=== PATIENT | male | born 1955 | race Two or more races ===

== ENCOUNTER 2017-10-22 11:18 | Inpatient (IN) | payer MEDICAID, OTHER ==
[~2017-10-22] VITALS: Ht 175.3 cm; Wt 87.6 kg
[2017-10-22] MEDS ORDERED: ASPI-496 PO (11:55)
[2017-10-22] MEDS ORDERED: METO25TA35 PO (11:55)
[2017-10-22] MEDS ORDERED: LISI30TA4 PO (11:55)
[2017-10-22] MEDS ORDERED: ACETAMINOPHEN 500 MG TABLET ONE (11:57)
[2017-10-22] MEDS ORDERED: VANCOMYCIN 2,000 MG in SODIUM CHLORIDE 0.9% 500 ML IV ONE (12:00)
[2017-10-22] MEDS ORDERED: VANCOMYCIN PER PHARMACY MC ONE (12:00)
[2017-10-22] MEDS ORDERED: SODIUM CHLORIDE 0.9% 1,000ML IVBOLUS ONE (12:00)
[2017-10-22] MEDS ORDERED: AMPICILLIN/SULBACTAM 3 GM in SODIUM CHLORIDE 0.9% 100 ML IV ONE (12:00)
[2017-10-22] MEDS ORDERED: PHARMACOKINETIC CONSULTATION MC ONE (12:00)
[2017-10-22] MEDS ORDERED: ACETAMINOPHEN 500 MG TABLET PO ONE (12:00)
[2017-10-22 12:36] LABS: MEAN CORPUSCULAR HEMOGLOBIN 30.1 pg (27.5-34.5); MEAN CORPUSCULAR HGB CONC 34.3 g/dL (33.2-36.2); MEAN CORPUSCULAR VOLUME 87.7 fL (81-97); MEAN PLATELET VOLUME 10.3 fL (7.4-10.4); PLATELET COUNT 199 x10^3/uL (130-400); RED BLOOD COUNT 5.19 x10^6/uL (4.38-5.82); RED CELL DISTRIBUTION WIDTH 13.2 % (9.4-14.8)
[2017-10-22 12:43] LABS: INTERNATIONAL NORMALIZED RATIO 1.03 (0.93-1.1); PROTHROMBIN TIME 10.6 Seconds (9.6-11.5)
[2017-10-22 12:48] LABS: ALANINE AMINOTRANSFERASE 22 U/L (12-78); ANION GAP 8 mmol/L (5-15); CALCIUM 8.7 mg/dL (8.5-10.1); CHLORIDE 103 mmol/L (98-107); CREATININE 0.97 mg/dL (0.7-1.3)
[2017-10-22 12:50] LABS: ALKALINE PHOSPHATASE 89 U/L (45-117); BILIRUBIN,TOTAL 1.6 mg/dL (0.2-1.0)
[2017-10-22 12:59] LABS: BASOPHILS # (AUTO) 0.03 x10^3/uL (0-0.1); BASOPHILS % (AUTO) 0 % (0-1); EOSINOPHILS # (AUTO) 0.01 x10^3/uL (0-0.4); EOSINOPHILS % (AUTO) 0 % (1-7); LYMPHOCYTES # (AUTO) 1.33 x10^3/uL (1-3.4); LYMPHOCYTES % (AUTO) 7 % (22-44); MD SCAN; MONOCYTES # (AUTO) 1.15 x10^3/uL (0.2-0.8); MONOCYTES % (AUTO) 6 % (2-9); NEUTROPHILS # (AUTO) 16.79 x10^3/uL (1.8-6.8); NEUTROPHILS % (AUTO) 87 % (42-75)
[2017-10-22] MEDS ORDERED: POLYETHYLENE GLYCOL 17 GM PACKET PO PRN (13:30)
[2017-10-22] MEDS ORDERED: hydrALAzine 20 MG/ML, 1ML IVPush PRN (13:30)
[2017-10-22] MEDS ORDERED: ONDANSETRON 2MG/ML, 2ML IVPush PRN (13:30)
[2017-10-22] MEDS ORDERED: DOCUSATE 100 MG CAPSULE PO PRN (13:30)
[2017-10-22] MEDS ORDERED: VANCOMYCIN PER PHARMACY MC PRN (13:30)
[2017-10-22] MEDS ORDERED: BISACODYL 10 MG SUPP PR PRN (13:30)
[2017-10-22 13:50] VITALS: BP 128/76
[2017-10-22] MEDS ORDERED: PHARMACOKINETIC MONITORING MC PRN (14:30)
[2017-10-22 15:33] LABS: HCT (SEDRATE) 45.5 % (39.2-51.8)
[2017-10-22] MEDS: NS + 20MEQ KCL 1,000 ML IV SCH (16:21)
[2017-10-22] MEDS: ENOXAPARIN 40 MG/0.4 ML SQ SCH (16:21)
[2017-10-22] MEDS: AMPICILLIN/SULBACTAM 3 GM in SODIUM CHLORIDE 0.9% 100 ML IV SCH (18:36)
[2017-10-22 20:20] VITALS: BP 140/77
[2017-10-23] MEDS: AMPICILLIN/SULBACTAM 3 GM in SODIUM CHLORIDE 0.9% 100 ML IV SCH ×5 (00:23→18:29)
[2017-10-23 03:20] VITALS: BP 146/52
[2017-10-23 06:08] LABS: BASOPHILS # (AUTO) 0.06 x10^3/uL (0-0.1); BASOPHILS % (AUTO) 1 % (0-1); EOSINOPHILS # (AUTO) 0.01 x10^3/uL (0-0.4); EOSINOPHILS % (AUTO) 0 % (1-7); LYMPHOCYTES # (AUTO) 1.76 x10^3/uL (1-3.4); LYMPHOCYTES % (AUTO) 13 % (22-44); MD NO; MEAN CORPUSCULAR HEMOGLOBIN 29.8 pg (27.5-34.5); MEAN CORPUSCULAR HGB CONC 33.5 g/dL (33.2-36.2); MEAN CORPUSCULAR VOLUME 88.8 fL (81-97); MEAN PLATELET VOLUME 9.6 fL (7.4-10.4); MONOCYTES # (AUTO) 1.12 x10^3/uL (0.2-0.8); MONOCYTES % (AUTO) 8 % (2-9); NEUTROPHILS # (AUTO) 10.61 x10^3/uL (1.8-6.8); NEUTROPHILS % (AUTO) 78 % (42-75); PLATELET COUNT 164 x10^3/uL (130-400); RED BLOOD COUNT 4.57 x10^6/uL (4.38-5.82)
[2017-10-23 06:09] LABS: ALBUMIN 3.1 g/dL (3.4-5.0); ANION GAP 8 mmol/L (5-15); CALCIUM 8.3 mg/dL (8.5-10.1); CHLORIDE 108 mmol/L (98-107)
[2017-10-23 06:13] LABS: ALANINE AMINOTRANSFERASE 18 U/L (12-78); ALKALINE PHOSPHATASE 61 U/L (45-117); BILIRUBIN,TOTAL 1.2 mg/dL (0.2-1.0); CREATININE 0.75 mg/dL (0.7-1.3); TOTAL PROTEIN 6.6 g/dL (6.4-8.2)
[2017-10-23] MEDS: ACETAMINOPHEN 325 MG TABLET PO PRN (06:32)
[2017-10-23] MEDS ORDERED: VANCOMYCIN 1,800 MG in SODIUM CHLORIDE 0.9% 250 ML IV SCH (07:00)
[2017-10-23] MEDS ORDERED: POTASSIUM CHLORIDE 20 MEQ TAB.ER.PRT PO ONE (07:00)
[2017-10-23 07:50] VITALS: BP 139/72
[2017-10-23] MEDS ORDERED: KETOROLAC 30 MG/1 ML IVPush PRN (08:00)
[2017-10-23 08:40] VITALS: BP 134/76
[2017-10-23] MEDS: ASPIRIN 81 MG TABLET EC PO SCH (08:41)
[2017-10-23] MEDS: LISINOPRIL 10 MG TABLET PO SCH (08:46)
[2017-10-23] MEDS: METOPROLOL TARTRATE 25 MG TABLET PO SCH (08:46)
[2017-10-23] MEDS: NS + 20MEQ KCL 1,000 ML IV SCH (13:56)
[2017-10-23 14:31] VITALS: BP 136/76
[2017-10-23] MEDS: ENOXAPARIN 40 MG/0.4 ML SQ SCH (16:38)
[2017-10-23 19:05] VITALS: BP 140/76
[2017-10-23] MEDS: VANCOMYCIN 1,600 MG in SODIUM CHLORIDE 0.9% 250 ML IV SCH (19:32)
[2017-10-24] MEDS: AMPICILLIN/SULBACTAM 3 GM in SODIUM CHLORIDE 0.9% 100 ML IV SCH ×4 (00:47→18:28)
[2017-10-24 04:00] VITALS: BP 132/79
[2017-10-24] MEDS: NS + 20MEQ KCL 1,000 ML IV SCH (05:01)
[2017-10-24 05:25] LABS: BASOPHILS # (AUTO) 0.06 x10^3/uL (0-0.1); BASOPHILS % (AUTO) 1 % (0-1); EOSINOPHILS # (AUTO) 0.07 x10^3/uL (0-0.4); EOSINOPHILS % (AUTO) 1 % (1-7); LYMPHOCYTES # (AUTO) 1.78 x10^3/uL (1-3.4); LYMPHOCYTES % (AUTO) 13 % (22-44); MD NO; MEAN CORPUSCULAR HEMOGLOBIN 30.3 pg (27.5-34.5); MEAN CORPUSCULAR HGB CONC 34.3 g/dL (33.2-36.2); MEAN CORPUSCULAR VOLUME 88.3 fL (81-97); MEAN PLATELET VOLUME 9.4 fL (7.4-10.4); MONOCYTES # (AUTO) 1.14 x10^3/uL (0.2-0.8); MONOCYTES % (AUTO) 9 % (2-9); NEUTROPHILS % (AUTO) 77 % (42-75); PLATELET COUNT 174 x10^3/uL (130-400); RED BLOOD COUNT 4.72 x10^6/uL (4.38-5.82); RED CELL DISTRIBUTION WIDTH 12.8 % (9.4-14.8)
[2017-10-24 05:37] LABS: CHLORIDE 108 mmol/L (98-107)
[2017-10-24 05:46] LABS: ALANINE AMINOTRANSFERASE 31 U/L (12-78); ALBUMIN 2.9 g/dL (3.4-5.0); ALKALINE PHOSPHATASE 65 U/L (45-117); ANION GAP 9 mmol/L (5-15); BILIRUBIN,TOTAL 0.7 mg/dL (0.2-1.0); CALCIUM 8.2 mg/dL (8.5-10.1); CREATININE 0.72 mg/dL (0.7-1.3); TOTAL PROTEIN 6.7 g/dL (6.4-8.2)
[2017-10-24 07:24] VITALS: BP 149/79
[2017-10-24] MEDS: ASPIRIN 81 MG TABLET EC PO SCH (08:03)
[2017-10-24] MEDS: METOPROLOL TARTRATE 25 MG TABLET PO SCH (08:03)
[2017-10-24] MEDS: VANCOMYCIN 1,600 MG in SODIUM CHLORIDE 0.9% 250 ML IV SCH ×2 (08:03→20:23)
[2017-10-24] MEDS: LISINOPRIL 10 MG TABLET PO SCH (08:03)
[2017-10-24 12:38] VITALS: BP 128/73
[2017-10-24] MEDS: ENOXAPARIN 40 MG/0.4 ML SQ SCH (16:37)
[2017-10-24 19:51] VITALS: BP 151/85
[2017-10-25] MEDS: AMPICILLIN/SULBACTAM 3 GM in SODIUM CHLORIDE 0.9% 100 ML IV SCH ×2 (00:51→06:38)
[2017-10-25 02:41] VITALS: BP 131/89
[2017-10-25] MEDS: NS + 20MEQ KCL 1,000 ML IV SCH ×3 (06:37→17:38)
[2017-10-25 07:23] LABS: BASOPHILS # (AUTO) 0.05 x10^3/uL (0-0.1); BASOPHILS % (AUTO) 1 % (0-1); EOSINOPHILS # (AUTO) 0.12 x10^3/uL (0-0.4); EOSINOPHILS % (AUTO) 1 % (1-7); LYMPHOCYTES # (AUTO) 1.79 x10^3/uL (1-3.4); LYMPHOCYTES % (AUTO) 18 % (22-44); MD NO; MEAN CORPUSCULAR HEMOGLOBIN 29.9 pg (27.5-34.5); MEAN PLATELET VOLUME 8.7 fL (7.4-10.4); MONOCYTES % (AUTO) 8 % (2-9); NEUTROPHILS # (AUTO) 7.35 x10^3/uL (1.8-6.8); NEUTROPHILS % (AUTO) 73 % (42-75); PLATELET COUNT 237 x10^3/uL (130-400); RED BLOOD COUNT 4.91 x10^6/uL (4.38-5.82); RED CELL DISTRIBUTION WIDTH 12.8 % (9.4-14.8)
[2017-10-25 07:24] LABS: ANION GAP 4 mmol/L (5-15); CALCIUM 8.9 mg/dL (8.5-10.1); CHLORIDE 108 mmol/L (98-107); CREATININE 0.83 mg/dL (0.7-1.3)
[2017-10-25 07:30] VITALS: BP 128/78
[2017-10-25] MEDS: ACETAMINOPHEN 325 MG TABLET PO PRN ×2 (07:58→22:34)
[2017-10-25] MEDS: ASPIRIN 81 MG TABLET EC PO SCH (07:58)
[2017-10-25] MEDS: VANCOMYCIN 1,600 MG in SODIUM CHLORIDE 0.9% 250 ML IV SCH ×3 (07:58→20:19)
[2017-10-25] MEDS: METOPROLOL TARTRATE 25 MG TABLET PO SCH (07:58)
[2017-10-25] MEDS: LISINOPRIL 10 MG TABLET PO SCH (07:59)
[2017-10-25] MEDS: PIPERACILLIN/TAZO/PMX 3.375GM 50 ML IV SCH ×4 (10:11→23:40)
[2017-10-25 12:22] VITALS: BP 130/74
[2017-10-25] MEDS ORDERED: GADOBUTROL 7.5 MMOL/7.5 ML PFS ONE (14:13)
[2017-10-25] MEDS: ENOXAPARIN 40 MG/0.4 ML SQ SCH (16:41)
[2017-10-25 20:20] VITALS: BP 133/79
[2017-10-26 03:50] VITALS: BP 133/79
[2017-10-26] MEDS: NS + 20MEQ KCL 1,000 ML IV SCH (04:47)
[2017-10-26 04:50] VITALS: BP 125/74
[2017-10-26 05:25] LABS: BASOPHILS # (AUTO) 0.05 x10^3/uL (0-0.1); BASOPHILS % (AUTO) 1 % (0-1); EOSINOPHILS # (AUTO) 0.15 x10^3/uL (0-0.4); EOSINOPHILS % (AUTO) 2 % (1-7); LYMPHOCYTES # (AUTO) 2.41 x10^3/uL (1-3.4); LYMPHOCYTES % (AUTO) 26 % (22-44); MD NO; MEAN CORPUSCULAR HEMOGLOBIN 30.1 pg (27.5-34.5); MEAN CORPUSCULAR HGB CONC 33.8 g/dL (33.2-36.2); MEAN CORPUSCULAR VOLUME 89.2 fL (81-97); MEAN PLATELET VOLUME 8.8 fL (7.4-10.4); MONOCYTES # (AUTO) 0.89 x10^3/uL (0.2-0.8); MONOCYTES % (AUTO) 10 % (2-9); NEUTROPHILS # (AUTO) 5.84 x10^3/uL (1.8-6.8); NEUTROPHILS % (AUTO) 63 % (42-75); PLATELET COUNT 265 x10^3/uL (130-400); RED BLOOD COUNT 4.79 x10^6/uL (4.38-5.82); RED CELL DISTRIBUTION WIDTH 12.8 % (9.4-14.8)
[2017-10-26 05:39] LABS: CHLORIDE 110 mmol/L (98-107)
[2017-10-26 05:44] LABS: ANION GAP 8 mmol/L (5-15); CALCIUM 9.1 mg/dL (8.5-10.1); CREATININE 0.81 mg/dL (0.7-1.3)
[2017-10-26] MEDS: PIPERACILLIN/TAZO/PMX 3.375GM 50 ML IV SCH ×4 (06:03→23:48)
[2017-10-26 07:58] VITALS: BP 137/75
[2017-10-26] MEDS: VANCOMYCIN 1,600 MG in SODIUM CHLORIDE 0.9% 250 ML IV SCH ×2 (08:01→20:13)
[2017-10-26] MEDS: ASPIRIN 81 MG TABLET EC PO SCH (08:04)
[2017-10-26] MEDS: METOPROLOL TARTRATE 25 MG TABLET PO SCH (08:04)
[2017-10-26] MEDS: LISINOPRIL 10 MG TABLET PO SCH (08:05)
[2017-10-26 08:12] VITALS: BP 134/83
[2017-10-26 14:45] VITALS: BP 150/91
[2017-10-26] MEDS: ENOXAPARIN 40 MG/0.4 ML SQ SCH (16:32)
[2017-10-26 19:25] VITALS: BP 128/87
[2017-10-27 01:09] VITALS: BP 129/76
[2017-10-27] MEDS: PIPERACILLIN/TAZO/PMX 3.375GM 50 ML IV SCH ×2 (05:24→11:21)
[2017-10-27 05:35] LABS: BASOPHILS # (AUTO) 0.05 x10^3/uL (0-0.1); BASOPHILS % (AUTO) 1 % (0-1); EOSINOPHILS # (AUTO) 0.14 x10^3/uL (0-0.4); EOSINOPHILS % (AUTO) 1 % (1-7); LYMPHOCYTES # (AUTO) 2.44 x10^3/uL (1-3.4); LYMPHOCYTES % (AUTO) 25 % (22-44); MD NO; MEAN CORPUSCULAR HGB CONC 34.1 g/dL (33.2-36.2); MEAN CORPUSCULAR VOLUME 88.1 fL (81-97); MEAN PLATELET VOLUME 8.7 fL (7.4-10.4); MONOCYTES # (AUTO) 0.83 x10^3/uL (0.2-0.8); MONOCYTES % (AUTO) 9 % (2-9); NEUTROPHILS # (AUTO) 6.34 x10^3/uL (1.8-6.8); NEUTROPHILS % (AUTO) 65 % (42-75); PLATELET COUNT 294 x10^3/uL (130-400); RED BLOOD COUNT 4.81 x10^6/uL (4.38-5.82); RED CELL DISTRIBUTION WIDTH 13.1 % (9.4-14.8)
[2017-10-27 05:41] LABS: ANION GAP 7 mmol/L (5-15); CALCIUM 9.1 mg/dL (8.5-10.1); CHLORIDE 106 mmol/L (98-107)
[2017-10-27 05:42] LABS: CREATININE 0.85 mg/dL (0.7-1.3)
[2017-10-27 07:44] VITALS: BP 115/80
[2017-10-27] MEDS: ASPIRIN 81 MG TABLET EC PO SCH (07:54)
[2017-10-27] MEDS: METOPROLOL TARTRATE 25 MG TABLET PO SCH (07:55)
[2017-10-27] MEDS: LISINOPRIL 10 MG TABLET PO SCH (07:55)
[2017-10-27] MEDS: VANCOMYCIN 1,600 MG in SODIUM CHLORIDE 0.9% 250 ML IV SCH (07:56)
[2017-10-27] MEDS: AMPICILLIN/SULBACTAM 3 GM in SODIUM CHLORIDE 0.9% 100 ML IV SCH ×2 (13:24→19:12)
[2017-10-27 13:56] VITALS: BP 136/73
[2017-10-27] MEDS: DOXYCYCLINE 100 MG in DEXTROSE 5% 250 ML IV SCH (14:09)
[2017-10-27] MEDS: ENOXAPARIN 40 MG/0.4 ML SQ SCH (16:26)
[2017-10-27 19:02] VITALS: BP 129/76
[2017-10-28] MEDS: AMPICILLIN/SULBACTAM 3 GM in SODIUM CHLORIDE 0.9% 100 ML IV SCH ×4 (01:46→22:34)
[2017-10-28 01:49] VITALS: BP 137/87
[2017-10-28] MEDS: DOXYCYCLINE 100 MG in DEXTROSE 5% 250 ML IV SCH ×2 (02:58→15:23)
[2017-10-28 05:02] LABS: BASOPHILS # (AUTO) 0.03 x10^3/uL (0-0.1); BASOPHILS % (AUTO) 0 % (0-1); EOSINOPHILS # (AUTO) 0.16 x10^3/uL (0-0.4); EOSINOPHILS % (AUTO) 2 % (1-7); LYMPHOCYTES # (AUTO) 2.26 x10^3/uL (1-3.4); LYMPHOCYTES % (AUTO) 22 % (22-44); MD NO; MEAN CORPUSCULAR HGB CONC 33.4 g/dL (33.2-36.2); MEAN CORPUSCULAR VOLUME 89.8 fL (81-97); MEAN PLATELET VOLUME 8.3 fL (7.4-10.4); MONOCYTES # (AUTO) 0.95 x10^3/uL (0.2-0.8); MONOCYTES % (AUTO) 9 % (2-9); NEUTROPHILS % (AUTO) 68 % (42-75); PLATELET COUNT 293 x10^3/uL (130-400); RED BLOOD COUNT 4.92 x10^6/uL (4.38-5.82); RED CELL DISTRIBUTION WIDTH 13.1 % (9.4-14.8)
[2017-10-28 05:14] LABS: ANION GAP 7 mmol/L (5-15); CALCIUM 9.1 mg/dL (8.5-10.1); CHLORIDE 107 mmol/L (98-107)
[2017-10-28 05:16] LABS: CREATININE 1.15 mg/dL (0.7-1.3)
[2017-10-28 05:17] LABS: HEMOGLOBIN A1C 6.1 % (4.2-6.3)
[2017-10-28 08:17] VITALS: BP 131/79
[2017-10-28] MEDS: LISINOPRIL 10 MG TABLET PO SCH (08:19)
[2017-10-28] MEDS: METOPROLOL TARTRATE 25 MG TABLET PO SCH (08:19)
[2017-10-28] MEDS: ASPIRIN 81 MG TABLET EC PO SCH (08:19)
[2017-10-28 14:14] VITALS: BP 136/81
[2017-10-28] MEDS: ENOXAPARIN 40 MG/0.4 ML SQ SCH (16:30)
[2017-10-29 01:18] VITALS: BP 150/93
[2017-10-29] MEDS: DOXYCYCLINE 100 MG in DEXTROSE 5% 250 ML IV SCH (01:42)
[2017-10-29] MEDS: AMPICILLIN/SULBACTAM 3 GM in SODIUM CHLORIDE 0.9% 100 ML IV SCH ×2 (04:39→10:02)
[2017-10-29 05:31] LABS: ALBUMIN 3.2 g/dL (3.4-5.0); ANION GAP 7 mmol/L (5-15); CALCIUM 9.2 mg/dL (8.5-10.1); CHLORIDE 108 mmol/L (98-107); CREATININE 0.92 mg/dL (0.7-1.3)
[2017-10-29 05:32] LABS: BASOPHILS # (AUTO) 0.05 x10^3/uL (0-0.1); BASOPHILS % (AUTO) 1 % (0-1); EOSINOPHILS # (AUTO) 0.21 x10^3/uL (0-0.4); EOSINOPHILS % (AUTO) 2 % (1-7); LYMPHOCYTES # (AUTO) 2.46 x10^3/uL (1-3.4); LYMPHOCYTES % (AUTO) 22 % (22-44); MD NO; MEAN CORPUSCULAR HEMOGLOBIN 30.3 pg (27.5-34.5); MEAN CORPUSCULAR HGB CONC 34.1 g/dL (33.2-36.2); MEAN CORPUSCULAR VOLUME 88.8 fL (81-97); MEAN PLATELET VOLUME 8.5 fL (7.4-10.4); MONOCYTES # (AUTO) 0.83 x10^3/uL (0.2-0.8); MONOCYTES % (AUTO) 7 % (2-9); NEUTROPHILS % (AUTO) 69 % (42-75); PLATELET COUNT 321 x10^3/uL (130-400); RED BLOOD COUNT 4.95 x10^6/uL (4.38-5.82); RED CELL DISTRIBUTION WIDTH 12.9 % (9.4-14.8)
[2017-10-29 06:41] VITALS: BP 136/85
[2017-10-29] MEDS: ASPIRIN 81 MG TABLET EC PO SCH (10:01)
[2017-10-29] MEDS: METOPROLOL TARTRATE 25 MG TABLET PO SCH (10:01)
[2017-10-29] MEDS: LISINOPRIL 10 MG TABLET PO SCH (10:02)
[2017-10-29] MEDS ORDERED: DOXY50TA9 PO (13:15)
[2017-10-29] MEDS ORDERED: L.AC1CAP6 PO (13:15)
[2017-10-29] MEDS ORDERED: AMOX1TAB61 PO (13:15)
== END 2017-10-29 15:40 | disposition home or self-care (01) | DRG 872 ==
LOC: ED 12:57 → EDIP 12:58 → ED 13:12 → 3NE 13:47 → DCLOUNGE 10-29 15:23
PROVIDERS: ADMIT Internal Medicine; ATTEND Internal Medicine
DX: A41.9 Sepsis, unspecified organism (principal); L03.115 Cellulitis of right lower limb; F12.90 Cannabis use, unspecified, uncomplicated; I11.9 Hypertensive heart disease without heart failure; R65.20 Severe sepsis without septic shock; R73.9 Hyperglycemia, unspecified; E80.6 Other disorders of bilirubin metabolism; Z66 Do not resuscitate; Z83.3 Family history of diabetes mellitus; Z80.9 Family history of malignant neoplasm, unspecified; Z79.82 Long term (current) use of aspirin; Z79.899 Other long term (current) drug therapy
CPT/HCPCS: 36415; 80048; 80053; 80202; 82040; 83036; 83605; 84145; 85025; 85610; 85651; 87040; 96365; A9585; J0295; J1650; J2543; J3370; J3480; J7060; J7030; J7040; J7050